=== PATIENT | female | born 1935 | race Caucasian/White ===

== ENCOUNTER 2017-01-10 19:20 | Observation (INO) | payer BC ==
--- NOTE | ~2017-01-10 | HP ---
History And Physical [place] [address] [facility] [place]. [address] NAME: ANITRA SANTANA : 31 STATUS : ADM IN [facility]#: [id number] AGE: 81 ADM/REG DATE : 01/10/17 MR#: [id number] REPORT SERV DATE: 01/10/17 DICTATED BY: ALIVIA BIRD JR. DATE: 01/10/17 REPORT STATUS : Draft TRANSCRIBED BY: LEILA DATE: 01/10/17 DATE OF ADMISSION: 01/10/2017 CHIEF COMPLAINT: Palpitations, recurrent atrial fibrillation. HISTORY OF PRESENT ILLNESS: Anitra is a very pleasant 81-year-old female with a history of lumbar disk disease status post laminectomy in September. This resulted in postoperative atrial fibrillation with rapid ventricular response requiring cardioversion. She did well until last week when she fell with a mechanical fall and fractured her nose and had post fall epistaxis. She held her Eliquis for several days because of this. She felt poorly last night with some palpitations and tachycardia, and then it recurred again today that was more profound and presented to [facility] ER and was found to be in atrial fibrillation with rapid ventricular response, with heart rates in the 150s. The patient denied precordial chest pain. She had mild shortness of breath. I had them give her 400 mg of amiodarone and accepted her in transfer. In transfer, she converted back to sinus rhythm. She is comfortable without shortness of breath or palpitation and denies current chest pain. She did take an Eliquis this morning. PAST MEDICAL HISTORY: Includes paroxysmal atrial fibrillation, mixed hyperlipidemia, hypertension, lumbar laminectomy, echocardiography in September of this year revealed an ejection fraction of 60% with mild diastolic dysfunction and trace to mild MR and TR. She denies prior TIA or stroke. She denies prior myocardial infarction. She denies diabetes. ALLERGIES: CODEINE AND PENICILLIN. CURRENT MEDICATIONS: Please see the home medication sheet, which was reviewed. SOCIAL HISTORY: She does not smoke, drink, or use recreational drugs. FAMILY HISTORY: Negative for premature vascular events. REVIEW OF SYSTEMS: The patient denies fever or chills. She denies dizziness or presyncope. She denies sudden weight gain or weight loss. The remainder as in HPI or negative. PHYSICAL EXAMINATION: VITAL signs: Blood pressure 112/80, heart rate 80, respirations 16. GENERAL: Well developed, well nourished, in no acute distress. HEENT: Anicteric, no scleral injection, no oral lesions. NECK: No JVD, supple, no bruits. LUNGS: Clear to auscultation. No hyperexpansion. CARDIOVASCULAR: Regular rate and rhythm with no murmur, rub or gallop. ABDOMEN: Soft, nontender. Normoactive bowel sounds, no hepatosplenomegaly. EXTREMITIES: No clubbing, cyanosis or edema. SKIN: No visible rashes. NEURO/PSY: Normal affect, alert and oriented x 3. History And Physical [address] [address] NAME: ANITRA SANTANA : 31 STATUS : ADM IN [facility]#: [id number] AGE: 81 ADM/REG DATE : 01/10/17 MR#: [id number] REPORT SERV DATE: 01/10/17 DICTATED BY: ALIVIA BIRD JR. DATE: 01/10/17 REPORT STATUS : Draft TRANSCRIBED BY: MODL DATE: 01/10/17 LABORATORY DATA: Creatinine is 1.5, glucose is 123, potassium is 4.6, hematocrit 32. MEDICAL DECISION MAKIN. Paroxysmal atrial fibrillation. The patient has converted to sinus rhythm after a dose of amiodarone given prior to transfer. We will initiate amiodarone 200 p.o. b.i.d. She will maintain Eliquis for stroke prophylaxis. If the patient maintained sinus rhythm anticipate discharge in the morning, with followup with Dr. Mendosa. 2. Hypertension. This is stable on current medical therapy. 3. Mixed hyperlipidemia. The patient will continue statin therapy for primary prevention. BALTAZAR/YUSRAL Alivia Bird Jr., M.D. / [id number] CC: Jose Rafael Wise Jr., MD
[~2017-01-10 19:20] MED LIST: ALEVE220 MG PO; CENTRUM PO; CYMBALTA30 PO; EXCEDRIN EXTRA1 EACH PO; FISH OIL1200 MG PO; L20 PO; LIPITOR20 PO; MSCONT15 PO; NASACORTAQ NAS; NORCO1 TAB PO; PRIN20 PO; PROBIOTIC PO
[2017-01-10] MEDS ORDERED: PRILO PO (20:03)
[2017-01-11 05:08] LABS: BASOPHILS 0.4 %; BASOPHILS ABSOLUTE 0.02 10/3/uL (0.0-0.16); EOSINOPHILS 3.8 %; EOSINOPHILS ABSOLUTE 0.17 10/3/uL (0.0-0.53); HEMOGLOBIN 9.3 g/dL (12.0-16.0); IMMATURE GRANULOCYTES 0.2 %; IMMATURE GRANULOCYTES ABSOLUTE 0.01 10/3/uL (0.0-0.11); LYMPHOCYTES 31.8 %; LYMPHOCYTES ABSOLUTE 1.43 10/3/uL (0.67-4.30); MEAN CORPUS HGB CONC 32.1 g/dL (32.0-36.0); MEAN CORPUSCULAR HEMOGLOB 28.7 pg (26.0-34.0); MEAN CORPUSCULAR VOLUME 89.5 fL (80-100); MEAN PLATELET VOLUME 11.2 fL (9.2-13.0); MONOCYTES 13.1 %; MONOCYTES ABSOLUTE 0.59 10/3/uL (0.21-1.20); NEUTROPHILS 50.7 %; NEUTROPHILS ABSOLUTE 2.27 10/3/uL (2.02-8.40); PLATELET COUNT 104 10/3/uL (150-400); RBC DISTRIBUTION WIDTH 15.3 % (12.0-16.0); RED CELL COUNT 3.24 10/6/uL (4.0-5.6); WHITE BLOOD CELLS 4.5 10/3/uL (4.5-10.5)
[2017-01-11 05:16] LABS: MANUAL DIFF NO %
[2017-01-11 05:17] LABS: BUN (BLOOD UREA NITROGEN) 25 MG/DL (6-23); CHLORIDE, SERUM 109 MMOL/L (96-112); CO2 (CARBON DIOXIDE) 23 MMOL/L (24-34); CREATININE 1.38 MG/DL (0.55-1.02); GFR AFRICAN AMERICAN 41 ML/MIN (>=60); GFR NON AFRICAN AMERICAN 35 ML/MIN (>=60); GLUCOSE, SERUM 94 MG/DL (60-99); SODIUM, SERUM 136 MMOL/L (135-148)
[2017-01-11 05:21] LABS: POTASSIUM, SERUM 4.5 MMOL/L (3.5-5.3)
[2017-01-11] MEDS ORDERED: ELIQUIS 5 MG TAB5 MG PO (11:22)
[2017-01-11] MEDS ORDERED: CORDARONE PO (11:23)
[2017-01-11] MEDS ORDERED: LOP25 PO (11:23)
[2017-01-18] MEDS ORDERED: CORDARONE PO (15:18)
[2017-01-18] MEDS ORDERED: B121000P IM (15:19)
[2017-01-25] MEDS ORDERED: CARD120 PO (09:52)
[2017-01-25] MEDS ORDERED: CARDCD120 PO (09:53)
[2017-01-25] MEDS ORDERED: SORINE80 MG PO (09:54)
[2017-01-25] MEDS ORDERED: TRIAMCINOLONE C80 GM TOP (09:55)
[2017-01-25] MEDS ORDERED: SAVELLA50 MG PO (09:57)
[2017-02-11] MEDS ORDERED: MEDS (11:11)
== END 2017-01-11 11:49 | disposition home or self-care (01) ==
LOC: 5NO 19:20
PROVIDERS: Internal Medicine Cardiovascular Disease
DX: I48.0 Paroxysmal atrial fibrillation (principal); I10 Essential (primary) hypertension; E78.2 Mixed hyperlipidemia; Z88.0 Allergy status to penicillin; Z88.5 Allergy status to narcotic agent
CPT/HCPCS: 80048; 85025; 93005; A9270-GY; G0378